=== PATIENT | male | born 1990 ===

== ENCOUNTER 2023-06-29 03:04 | Emergency (ER) | payer SELFPAY ==
[~2023-06-29] VITALS: Ht 172.7 cm; Wt 125.0 kg
[2023-06-29 03:21] VITALS: BP 149/77; PULSE 113; RESP 24; TEMP 98.4
== END 2023-06-29 04:16 | disposition home or self-care (01) ==
LOC: EMS 03:06
DX: F10.129 Alcohol abuse with intoxication, unspecified (principal); Y90.9 Presence of alcohol in blood, level not specified
CPT/HCPCS: 99283